=== PATIENT | male | born 1970 | race Hispanic/Latino ===

== ENCOUNTER 2020-06-29 17:55 | Inpatient (IN) | payer OTHER ==
[~2020-06-29] VITALS: Ht 162.6 cm; Wt 65.9 kg
[2020-06-29 18:42] LABS: BASOPHILS % (AUTO) 0.2 % (0.0-5.0); HEMATOCRIT 42.4 % (42-54); MEAN CORPUSCULAR HEMOGLOBIN 29.6 pg (27.0-33.0); MEAN CORPUSCULAR VOLUME 87.1 fL (79-99); MONOCYTES % (AUTO) 15.8 % (3.0-13.0); NEUTROPHILS % (AUTO) 72.7 % (40.0-77.0); PLATELET COUNT (AUTO) 334 K/uL (130-400); RED BLOOD CELL COUNT(AUTO) 4.87 MIL/uL (4.50-6.20); WHITE BLOOD COUNT (AUTO) 10.5 K/uL (4.8-10.8)
[2020-06-29] MEDS ORDERED: CEFTRIAXONE SODIUM 2 GM VIAL ONE (18:42)
[2020-06-29] MEDS ORDERED: SODIUM CHLORIDE 0.9% 50 ML IV ONE (18:42)
[2020-06-29] MEDS ORDERED: METHYLPREDNISOLONE SOD SUCC 125MG/2ML VIAL ONE (18:42)
[2020-06-29 18:47] LABS: CARBON DIOXIDE 27 mmol/L (21-32); CHLORIDE 104 mmol/L (101-111); CREATININE 0.8 mg/dL (0.5-1.5); GLOMERULAR FILTR. RATE CALC 110 mL/min (>60); GLUCOSE,RANDOM 124 mg/dL (70-105); POTASSIUM 3.9 mmol/L (3.5-5.1); SODIUM SERUM 141 mmol/L (136-145); UREA NITROGEN, BLOOD 20 mg/dL (7-18)
[2020-06-29 18:51] LABS: ALANINE AMINOTRANSFERASE 56 U/L (12-78); ALBUMIN 2.9 g/dL (3.5-5.0); ASPARTATE AMINOTRANSFERASE 23 U/L (10-37); BILIRUBIN,DIRECT < 0.1 mg/dL (0.0-0.3); BILIRUBIN,TOTAL 0.3 mg/dL (0.2-1.0); CREATINE KINASE, TOTAL 41 U/L (21-232); TOTAL PROTEIN, SERUM 7.6 g/dL (6.0-8.3)
[2020-06-29 19:13] LABS: B-TYPE NATRIURETIC PEPTIDE 37 pg/mL (0-100)
[2020-06-29] MEDS ORDERED: ALBUTEROL INHALER 90MCG/INH IH PRN (20:45)
[2020-06-29] MEDS: AZITHROMYCIN 500MG+NS 250ML 250 ML IV SCH (20:45)
[2020-06-29] MEDS ORDERED: ACETAMINOPHEN 325 MG TAB PO PRN ×2 (20:45)
[2020-06-29] MEDS: CEFTRIAXONE SODIUM 1 GM IV SCH (20:45)
[2020-06-29] MEDS ORDERED: ONDANSETRON HCL 4 MG/2 ML VIAL IV PRN (20:45)
[2020-06-29] MEDS ORDERED: LACTULOSE 20 GM/30 ML UDCUP PO PRN (20:45)
[2020-06-29] MEDS ORDERED: HYDRALAZINE HCL 20 MG/ML VIAL IV PRN (20:45)
[2020-06-29] MEDS: FAMOTIDINE 20MG TAB 20 MG TAB PO SCH (21:00)
[2020-06-29] MEDS ORDERED: AZITHROMYCIN 500MG+NS 250ML 250 ML IV ONE (22:50)
[2020-06-29] MEDS ORDERED: FAMOTIDINE 20MG TAB 20 MG TAB ONE (22:50)
[2020-06-29] MEDS ORDERED: ALBUTEROL INHALER 90MCG/INH IH ONE (22:50)
[2020-06-30 06:27] LABS: BASOPHILS % (AUTO) 0.2 % (0.0-5.0); HEMATOCRIT 39.7 % (42-54); LYMPHOCYTES % (AUTO) 11.6 % (21.0-51.0); MEAN CORPUSCULAR HEMOGLOBIN 29.4 pg (27.0-33.0); MEAN CORPUSCULAR HGB CONC 33.5 g/dL (32.0-36.0); MEAN CORPUSCULAR VOLUME 87.8 fL (79-99); MONOCYTES % (AUTO) 9.3 % (3.0-13.0); NEUTROPHILS % (AUTO) 77.1 % (40.0-77.0); PLATELET COUNT (AUTO) 308 K/uL (130-400); RED BLOOD CELL COUNT(AUTO) 4.52 MIL/uL (4.50-6.20); RED CELL DISTRIBUTION WIDTH 12.1 % (11.0-15.5); WHITE BLOOD COUNT (AUTO) 6.1 K/uL (4.8-10.8)
[2020-06-30 06:37] LABS: ALBUMIN 2.5 g/dL (3.5-5.0); BILIRUBIN,TOTAL 0.2 mg/dL (0.2-1.0); CREATININE 0.7 mg/dL (0.5-1.5); CRP QUANTITATIVE 33.8 mg/L (0.00-9.0); POTASSIUM 4.2 mmol/L (3.5-5.1); TOTAL PROTEIN, SERUM 6.7 g/dL (6.0-8.3)
[2020-06-30] MEDS ORDERED: ERGOCALCIFEROL (VITAMIN D2) 50,000 UNIT CAPSULE PO SCH (08:30)
[2020-06-30] MEDS: FAMOTIDINE 20MG TAB 20 MG TAB PO SCH ×2 (09:00→21:00)
[2020-06-30] MEDS: ACETYLCYSTEINE 600 MG CAPSULE PO SCH ×2 (09:00→21:00)
[2020-06-30] MEDS: DEXAMETHASONE 4 MG TAB PO SCH (09:00)
[2020-06-30] MEDS ORDERED: ASCORBIC ACID 500 MG TAB PO SCH (09:00)
[2020-06-30] MEDS: ENOXAPARIN SODIUM 40 MG/0.4 ML SYRINGE SQ SCH (09:00)
[2020-06-30] MEDS ORDERED: VITAMIN B COMPLEX 1 CAPSULE PO SCH (09:00)
[2020-06-30] MEDS ORDERED: ZINC SULFATE 220 CAPSULE PO SCH (09:00)
[2020-06-30] MEDS ORDERED: ASCORBIC ACID 500 MG TAB ONE (10:06)
[2020-06-30] MEDS ORDERED: ERGOCALCIFEROL (VITAMIN D2) 50,000 UNIT CAPSULE ONE (10:06)
[2020-06-30] MEDS ORDERED: FAMOTIDINE 20MG TAB 20 MG TAB ONE (10:06)
[2020-06-30] MEDS ORDERED: DEXAMETHASONE 4 MG TAB ONE (10:07)
[2020-06-30] MEDS ORDERED: ACETYLCYSTEINE 600 MG CAPSULE ONE (10:07)
[2020-06-30] MEDS ORDERED: ZINC SULFATE 220 CAPSULE ONE (10:07)
[2020-06-30] MEDS ORDERED: ENOXAPARIN SODIUM 40 MG/0.4 ML SYRINGE SQ ONE (10:08)
--- NOTE | 2020-06-30 17:51 | NUR ---
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 DCP IS HOME, ADVISED HIM THAT WE DO HAVE A [facility] PKT WE CAN GIVE HIM ON DISCHARGE. CM TO FOLLOW UP Addendum: 07/01/20 at 1756 by KARLA DIAMOND RN CM Amended: Links added.
[2020-06-30] MEDS: AZITHROMYCIN 500MG+NS 250ML 250 ML IV SCH (20:45)
[2020-06-30] MEDS: CEFTRIAXONE SODIUM 1 GM IV SCH (20:45)
[2020-06-30] MEDS ORDERED: CEFTRIAXONE SODIUM 1 GM ONE (22:29)
[2020-06-30] MEDS ORDERED: AZITHROMYCIN 500MG+NS 250ML 250 ML IV ONE (22:29)
[2020-06-30] MEDS ORDERED: FAMOTIDINE/PF 20 MG/2 ML VIAL IV ONE (22:30)
[2020-07-01 05:41] LABS: BASOPHILS % (AUTO) 0.2 % (0.0-5.0); EOSINOPHILS % (AUTO) 0.2 % (0.0-8.0); HEMATOCRIT 40.6 % (42-54); LYMPHOCYTES % (AUTO) 14.2 % (21.0-51.0); MEAN CORPUSCULAR HEMOGLOBIN 29.7 pg (27.0-33.0); MEAN CORPUSCULAR HGB CONC 33.7 g/dL (32.0-36.0); MEAN CORPUSCULAR VOLUME 87.9 fL (79-99); MONOCYTES % (AUTO) 12.1 % (3.0-13.0); NEUTROPHILS % (AUTO) 71.2 % (40.0-77.0); PLATELET COUNT (AUTO) 357 K/uL (130-400); RED BLOOD CELL COUNT(AUTO) 4.62 MIL/uL (4.50-6.20)
[2020-07-01 06:07] LABS: ALBUMIN 2.4 g/dL (3.5-5.0); BILIRUBIN,TOTAL 0.2 mg/dL (0.2-1.0); CREATININE 0.8 mg/dL (0.5-1.5); CRP QUANTITATIVE 15.5 mg/L (0.00-9.0); POTASSIUM 4.1 mmol/L (3.5-5.1); TOTAL PROTEIN, SERUM 6.5 g/dL (6.0-8.3)
[2020-07-01 06:09] LABS: HEMOGLOBIN A1C 6.1 % (4.0-6.0)
[2020-07-01 07:41] LABS: ABG BASE EXCESS 1.5 mmol/L (-2.0-3.0); ABG HCO3 25.1 mmol/L (21.0-28.0); ABG OXYGEN SATURATION 94.9 % (95.0-99.0); ABG PCO2 37 mmHg (35-48)
[2020-07-01] MEDS ORDERED: ASCORBIC ACID 500 MG TAB ONE (08:45)
[2020-07-01] MEDS ORDERED: ENOXAPARIN SODIUM 40 MG/0.4 ML SYRINGE SQ ONE (08:46)
[2020-07-01] MEDS ORDERED: DEXAMETHASONE 4 MG TAB ONE (08:46)
[2020-07-01] MEDS ORDERED: ACETYLCYSTEINE 600 MG CAPSULE ONE (08:46)
[2020-07-01] MEDS ORDERED: ZINC SULFATE 220 CAPSULE ONE (08:46)
[2020-07-01] MEDS: DEXAMETHASONE 4 MG TAB PO SCH (09:00)
[2020-07-01] MEDS: ENOXAPARIN SODIUM 40 MG/0.4 ML SYRINGE SQ SCH (09:00)
[2020-07-01] MEDS: ACETYLCYSTEINE 600 MG CAPSULE PO SCH ×2 (09:00→20:12)
[2020-07-01] MEDS: FAMOTIDINE 20MG TAB 20 MG TAB PO SCH ×2 (09:00→20:12)
[2020-07-01] MEDS ORDERED: FAMOTIDINE 20MG TAB 20 MG TAB ONE (10:06)
[2020-07-01 17:46] VITALS: BP 134/94
[2020-07-01 20:00] VITALS: BP 97/57
[2020-07-01] MEDS: AZITHROMYCIN 500MG+NS 250ML 250 ML IV SCH (20:12)
[2020-07-01] MEDS: CEFTRIAXONE SODIUM 1 GM IV SCH (20:12)
[2020-07-01 23:31] VITALS: BP 110/65
[2020-07-02 03:53] VITALS: BP 98/61
[2020-07-02 04:18] LABS: BASOPHILS % (AUTO) 0.4 % (0.0-5.0); EOSINOPHILS % (AUTO) 0.9 % (0.0-8.0); HEMATOCRIT 43.3 % (42-54); LYMPHOCYTES % (AUTO) 22.1 % (21.0-51.0); MEAN CORPUSCULAR HEMOGLOBIN 29.4 pg (27.0-33.0); MEAN CORPUSCULAR HGB CONC 33.9 g/dL (32.0-36.0); MEAN CORPUSCULAR VOLUME 86.6 fL (79-99); MONOCYTES % (AUTO) 14.6 % (3.0-13.0); NEUTROPHILS % (AUTO) 57.9 % (40.0-77.0); PLATELET COUNT (AUTO) 377 K/uL (130-400); RED CELL DISTRIBUTION WIDTH 11.9 % (11.0-15.5); WHITE BLOOD COUNT (AUTO) 7.8 K/uL (4.8-10.8)
[2020-07-02 04:38] LABS: ALBUMIN 2.5 g/dL (3.5-5.0); BILIRUBIN,TOTAL 0.4 mg/dL (0.2-1.0); CRP QUANTITATIVE 60.4 mg/L (0.00-9.0); POTASSIUM 4.1 mmol/L (3.5-5.1); TOTAL PROTEIN, SERUM 6.8 g/dL (6.0-8.3)
[2020-07-02 07:00] VITALS: BP 99/58
[2020-07-02] MEDS: FAMOTIDINE 20MG TAB 20 MG TAB PO SCH ×2 (09:17→21:11)
[2020-07-02] MEDS: DEXAMETHASONE 4 MG TAB PO SCH (09:17)
[2020-07-02] MEDS: ENOXAPARIN SODIUM 40 MG/0.4 ML SYRINGE SQ SCH (09:18)
[2020-07-02] MEDS: ACETYLCYSTEINE 600 MG CAPSULE PO SCH ×2 (09:36→21:11)
[2020-07-02 11:00] VITALS: BP 94/54
[2020-07-02 16:00] VITALS: BP 97/53
--- NOTE | 2020-07-02 17:06 | NUR ---
REFUSAL PATIENT IS REFUSING TRANSFUSION OF CONVALACENT PLASMA.
[2020-07-02 19:00] VITALS: BP 115/67
[2020-07-02 23:00] VITALS: BP 109/69
[2020-07-03] MEDS: PHARMACY COMMUNICATION**REMDESIVIR ORDER MISC SCH ×5 (00:15→21:01)
[2020-07-03 03:00] VITALS: BP 106/58
[2020-07-03 04:50] LABS: BASOPHILS % (AUTO) 0.1 % (0.0-5.0); EOSINOPHILS % (AUTO) 0.1 % (0.0-8.0); HEMATOCRIT 43.7 % (42-54); MEAN CORPUSCULAR HEMOGLOBIN 29.1 pg (27.0-33.0); MEAN CORPUSCULAR HGB CONC 33.4 g/dL (32.0-36.0); MEAN CORPUSCULAR VOLUME 87.2 fL (79-99); MONOCYTES % (AUTO) 7.2 % (3.0-13.0); NEUTROPHILS % (AUTO) 78.8 % (40.0-77.0); PLATELET COUNT (AUTO) 426 K/uL (130-400); RED BLOOD CELL COUNT(AUTO) 5.01 MIL/uL (4.50-6.20); RED CELL DISTRIBUTION WIDTH 11.9 % (11.0-15.5); WHITE BLOOD COUNT (AUTO) 8.8 K/uL (4.8-10.8)
[2020-07-03 05:04] LABS: ALANINE AMINOTRANSFERASE 39 U/L (12-78); ALBUMIN 2.6 g/dL (3.5-5.0); ASPARTATE AMINOTRANSFERASE 15 U/L (10-37); BILIRUBIN,TOTAL 0.3 mg/dL (0.2-1.0); CARBON DIOXIDE 28 mmol/L (21-32); CHLORIDE 102 mmol/L (101-111); CREATININE 0.8 mg/dL (0.5-1.5); GLOMERULAR FILTR. RATE CALC 110 mL/min (>60); GLUCOSE,RANDOM 138 mg/dL (70-105); LACTATE DEHYDROGENASE 197 U/L (81-234); POTASSIUM 3.9 mmol/L (3.5-5.1); SODIUM SERUM 137 mmol/L (136-145); TOTAL PROTEIN, SERUM 7.1 g/dL (6.0-8.3); UREA NITROGEN, BLOOD 20 mg/dL (7-18)
[2020-07-03] MEDS: FAMOTIDINE 20MG TAB 20 MG TAB PO SCH ×2 (09:00→21:00)
[2020-07-03] MEDS: ACETYLCYSTEINE 600 MG CAPSULE PO SCH ×2 (09:00→21:00)
[2020-07-03] MEDS: DEXAMETHASONE SOD PHOSPHATE 4 MG/ML 1ML VIAL IVP SCH (09:01)
[2020-07-03] MEDS: ENOXAPARIN SODIUM 40 MG/0.4 ML SYRINGE SQ SCH (09:01)
[2020-07-03 09:28] VITALS: BP 114/69
[2020-07-03 11:48] VITALS: BP 136/73
[2020-07-03] MEDS ORDERED: PHARMACY COMMUNICATION**REMDESIVIR ORDER MISC SCH (13:15)
[2020-07-03 18:23] VITALS: BP 130/86
[2020-07-03 19:58] VITALS: BP 112/62
--- NOTE | 2020-07-03 22:00 | NUR ---
PT IS STABLE. NO DISTRESS NOTED. ABLE TO TAKE MEDIATIONS WELL. STATES MINIMAL CONSTIPATION. STATES HAS NOT BEEN EATING WELL. BROUGHT IN SOME FOOD FOR THE PT. PENDING TO ARRIVE TO ROOM. PT HAD BEDSIDE COMMODE. NO CONCERNS AT THIS TIME. FROM 3LPM. TO 2LPM. GOAL IS 1LPM BY END OF SHIFT.
[2020-07-03 23:50] VITALS: BP 124/70
[2020-07-04 03:51] VITALS: BP 136/87
[2020-07-04 04:23] LABS: BASOPHILS % (AUTO) 0.1 % (0.0-5.0); EOSINOPHILS % (AUTO) 0.2 % (0.0-8.0); HEMATOCRIT 43.1 % (42-54); LYMPHOCYTES % (AUTO) 11.4 % (21.0-51.0); MEAN CORPUSCULAR HEMOGLOBIN 29.2 pg (27.0-33.0); MEAN CORPUSCULAR HGB CONC 33.6 g/dL (32.0-36.0); MEAN CORPUSCULAR VOLUME 86.7 fL (79-99); MONOCYTES % (AUTO) 9.2 % (3.0-13.0); NEUTROPHILS % (AUTO) 76.5 % (40.0-77.0); PLATELET COUNT (AUTO) 422 K/uL (130-400); RED BLOOD CELL COUNT(AUTO) 4.97 MIL/uL (4.50-6.20); RED CELL DISTRIBUTION WIDTH 11.9 % (11.0-15.5); WHITE BLOOD COUNT (AUTO) 10.3 K/uL (4.8-10.8)
[2020-07-04 04:52] LABS: ALANINE AMINOTRANSFERASE 47 U/L (12-78); ALBUMIN 2.6 g/dL (3.5-5.0); ASPARTATE AMINOTRANSFERASE 18 U/L (10-37); BILIRUBIN,TOTAL 0.2 mg/dL (0.2-1.0); CARBON DIOXIDE 26 mmol/L (21-32); CHLORIDE 102 mmol/L (101-111); CREATININE 0.8 mg/dL (0.5-1.5); GLOMERULAR FILTR. RATE CALC 110 mL/min (>60); GLUCOSE,RANDOM 112 mg/dL (70-105); LACTATE DEHYDROGENASE 151 U/L (81-234); SODIUM SERUM 134 mmol/L (136-145); UREA NITROGEN, BLOOD 19 mg/dL (7-18)
[2020-07-04 08:00] VITALS: BP 116/77
[2020-07-04] MEDS: PHARMACY COMMUNICATION**REMDESIVIR ORDER MISC SCH ×2 (08:15→16:15)
[2020-07-04] MEDS: ACETYLCYSTEINE 600 MG CAPSULE PO SCH ×2 (08:54→20:18)
[2020-07-04] MEDS: ENOXAPARIN SODIUM 40 MG/0.4 ML SYRINGE SQ SCH (08:55)
[2020-07-04] MEDS: DEXAMETHASONE SOD PHOSPHATE 4 MG/ML 1ML VIAL IVP SCH (08:56)
[2020-07-04] MEDS: FAMOTIDINE 20MG TAB 20 MG TAB PO SCH ×2 (08:56→20:18)
[2020-07-04 12:00] VITALS: BP 120/78
[2020-07-04 16:00] VITALS: BP 121/77
[2020-07-04 19:43] VITALS: BP 105/71
--- NOTE | 2020-07-04 23:00 | NUR ---
PT TRANSFERRED TO 204. PT STATES NO CONCERNS. VOIDING WELL. REFUSED WOUND CARE. STATED IT IS DUE 07/05. PT AWARE OF POOR RENAL FUNCTION. NOT WANTING TO DO DIALYSIS.
[2020-07-04 23:55] VITALS: BP 111/59
--- NOTE | 2020-07-05 | NUR ---
PT IS PLANNED TO BE DCD 07/05. AFTER REEVALUATION.
[2020-07-05] MEDS: PHARMACY COMMUNICATION**REMDESIVIR ORDER MISC SCH ×2 (00:15→08:15)
[2020-07-05 03:58] VITALS: BP 113/67
[2020-07-05 05:19] LABS: BASOPHILS % (AUTO) 0.1 % (0.0-5.0); EOSINOPHILS % (AUTO) 0.1 % (0.0-8.0); HEMATOCRIT 44.3 % (42-54); LYMPHOCYTES % (AUTO) 16.2 % (21.0-51.0); MEAN CORPUSCULAR HEMOGLOBIN 29.5 pg (27.0-33.0); MEAN CORPUSCULAR HGB CONC 34.1 g/dL (32.0-36.0); MEAN CORPUSCULAR VOLUME 86.7 fL (79-99); MONOCYTES % (AUTO) 9.8 % (3.0-13.0); PLATELET COUNT (AUTO) 436 K/uL (130-400); RED BLOOD CELL COUNT(AUTO) 5.11 MIL/uL (4.50-6.20); RED CELL DISTRIBUTION WIDTH 11.9 % (11.0-15.5); WHITE BLOOD COUNT (AUTO) 7.8 K/uL (4.8-10.8)
[2020-07-05 06:05] LABS: ALANINE AMINOTRANSFERASE 44 U/L (12-78); ALBUMIN 2.7 g/dL (3.5-5.0); ASPARTATE AMINOTRANSFERASE 15 U/L (10-37); BILIRUBIN,TOTAL 0.4 mg/dL (0.2-1.0); CARBON DIOXIDE 28 mmol/L (21-32); CHLORIDE 101 mmol/L (101-111); CREATININE 0.8 mg/dL (0.5-1.5); GLOMERULAR FILTR. RATE CALC 110 mL/min (>60); GLUCOSE,RANDOM 92 mg/dL (70-105); LACTATE DEHYDROGENASE 146 U/L (81-234); SODIUM SERUM 136 mmol/L (136-145); TOTAL PROTEIN, SERUM 7.1 g/dL (6.0-8.3); UREA NITROGEN, BLOOD 19 mg/dL (7-18)
[2020-07-05 08:00] VITALS: BP 142/60
[2020-07-05] MEDS: ACETYLCYSTEINE 600 MG CAPSULE PO SCH (08:34)
[2020-07-05] MEDS: DEXAMETHASONE SOD PHOSPHATE 4 MG/ML 1ML VIAL IVP SCH (08:46)
[2020-07-05] MEDS: FAMOTIDINE 20MG TAB 20 MG TAB PO SCH (08:46)
[2020-07-05] MEDS: ENOXAPARIN SODIUM 40 MG/0.4 ML SYRINGE SQ SCH (08:47)
[2020-07-05 12:00] VITALS: BP 130/68
[2020-07-05] MEDS ORDERED: APIX2.5T PO (12:56)
[2020-07-05] MEDS ORDERED: DEXA6TAB PO (13:03)
--- NOTE | 2020-07-05 14:27 | NUR ---
Discharge. Pt aaox,4 airway patent breathing even and unlabored all day on room air. NAD. No complaints today Pt cleared for discharge by Dr Zurita. Discharge instructions, follow up and medication instructions provided to pt. Pt verbalizes understanding. All questions answered and addressed. VS wnl. Pt wheeled out of unit by ANICETO Piper.
== END 2020-07-05 16:00 | disposition home or self-care (01) | DRG 177 ==
LOC: EDH 17:55 → EDHIP 17:56 → 2CV 07-01 17:26 → 2AH 07-05 00:05
PROVIDERS: ADMIT Internal Medicine; ATTEND Internal Medicine
DX: U07.1 COVID-19 (principal); J12.89 Other viral pneumonia; J96.01 Acute respiratory failure with hypoxia; I10 Essential (primary) hypertension
CPT/HCPCS: 36415; 36600; 71045; 71250; 80048; 80053; 80076; 82550; 82728; 82803; 82948; 83036; 83615; 83880; 84145; 84484; 85025; 85378; 86140; 86900; 86901; 87040; 87426; 93005; G0378; J0456; J0696; J1100; J1650; J2930; J3490; J8540; U0003